=== PATIENT | male | born 1945 | race Caucasian/White ===

== ENCOUNTER 2021-05-27 13:55 | Inpatient (IN) | payer OTHER ==
[2021-05-27] MEDS ORDERED: ALBUTEROL INH PRN (16:55)
[2021-05-27] MEDS ORDERED: LORazepam 0.5 MG Tab PO PRN (16:55)
[2021-05-27] MEDS ORDERED: IPRATROPIUM INH PRN (16:55)
[2021-05-27] MEDS ORDERED: oxyCODONE 5 MG Tab PO PRN (16:55)
[2021-05-27] MEDS ORDERED: ACETAMINOPHEN 650 MG PO PRN (16:55)
[2021-05-27] MEDS ORDERED: Glycopyrrolate 1 MG Tab PO PRN (16:55)
[2021-05-27] MEDS ORDERED: DEXTROSE PO PRN (16:55)
[2021-05-27] MEDS ORDERED: ONDANSETRON 8 MG PO PRN (16:55)
[2021-05-27] MEDS: BIOTENE DRY MOUTH RINSE PO SCH (18:35)
[2021-05-27] MEDS: GLIPIZIDE 5 MG PO SCH (18:36)
[2021-05-27] MEDS: SODIUM BICARBONATE 650 MG PO SCH ×2 (18:36→21:05)
[2021-05-27] MEDS: METOPROLOL TARTRATE 25 MG PO SCH (18:39)
[2021-05-27] MEDS ORDERED: Non-Formulary Medication 1 Each (Folic Acid [Folic Acid] 0.4 MG Tablet) PO SCH (21:00)
[2021-05-27] MEDS: Cranberry Ext/C/L. Sporogenes Tab PO SCH (21:04)
[2021-05-27] MEDS: MICONAZOLE NITRATE TOP SCH (21:04)
[2021-05-27] MEDS: MELATONIN 3 MG PO SCH (21:05)
[2021-05-28] MEDS: BIOTENE DRY MOUTH RINSE PO SCH ×2 (05:58→17:48)
[2021-05-28] MEDS: METOPROLOL TARTRATE 25 MG PO SCH ×2 (06:03→17:47)
[2021-05-28] MEDS: OMEPRAZOLE 20 MG PO SCH (06:30)
[2021-05-28] MEDS: GLIPIZIDE 5 MG PO SCH ×2 (06:30→17:48)
[2021-05-28] MEDS: ASPIRIN 81 MG PO SCH (08:48)
[2021-05-28] MEDS: SODIUM BICARBONATE 650 MG PO SCH ×5 (08:48→20:00)
[2021-05-28] MEDS: DULOXETINE 30 MG PO SCH (08:49)
[2021-05-28] MEDS: Cranberry Ext/C/L. Sporogenes Tab PO SCH ×3 (08:50→20:00)
[2021-05-28] MEDS: LIDOCAINE TOP SCH (11:19)
[2021-05-28] MEDS: MICONAZOLE NITRATE TOP SCH ×3 (11:19→20:00)
[2021-05-28] MEDS: DIGOXIN 125 MCG PO SCH (17:46)
[2021-05-28] MEDS: MELATONIN 3 MG PO SCH ×2 (19:42→20:00)
[2021-05-29] MEDS: METOPROLOL TARTRATE 25 MG PO SCH ×2 (05:59→18:34)
[2021-05-29] MEDS: BIOTENE DRY MOUTH RINSE PO SCH ×2 (06:01→18:39)
[2021-05-29] MEDS: GLIPIZIDE 5 MG PO SCH ×2 (08:48→18:37)
[2021-05-29] MEDS: ASPIRIN 81 MG PO SCH (08:49)
[2021-05-29] MEDS: OMEPRAZOLE 20 MG PO SCH (08:49)
[2021-05-29] MEDS: Cranberry Ext/C/L. Sporogenes Tab PO SCH ×2 (08:50→20:13)
[2021-05-29] MEDS: DULOXETINE 30 MG PO SCH (08:50)
[2021-05-29] MEDS: SODIUM BICARBONATE 650 MG PO SCH ×4 (08:50→20:14)
[2021-05-29] MEDS: LIDOCAINE TOP SCH (08:51)
[2021-05-29] MEDS: MICONAZOLE NITRATE TOP SCH ×2 (08:53→20:13)
[2021-05-29] MEDS: DIGOXIN 125 MCG PO SCH (18:41)
[2021-05-29] MEDS: MELATONIN 3 MG PO SCH (20:13)
[2021-05-30] MEDS: BIOTENE DRY MOUTH RINSE PO SCH ×2 (07:29→17:03)
[2021-05-30] MEDS: GLIPIZIDE 5 MG PO SCH ×2 (07:31→17:05)
[2021-05-30] MEDS: Cranberry Ext/C/L. Sporogenes Tab PO SCH ×3 (07:32→20:23)
[2021-05-30] MEDS: OMEPRAZOLE 20 MG PO SCH (07:33)
[2021-05-30] MEDS: METOPROLOL TARTRATE 25 MG PO SCH ×2 (07:34→17:10)
[2021-05-30] MEDS: DULOXETINE 30 MG PO SCH ×2 (07:35→08:08)
[2021-05-30] MEDS: ASPIRIN 81 MG PO SCH ×2 (07:36→08:08)
[2021-05-30] MEDS: SODIUM BICARBONATE 650 MG PO SCH ×5 (07:36→20:23)
[2021-05-30] MEDS: MICONAZOLE NITRATE TOP SCH ×3 (07:40→20:23)
[2021-05-30] MEDS: LIDOCAINE TOP SCH (08:08)
[2021-05-30] MEDS: DIGOXIN 125 MCG PO SCH (17:10)
[2021-05-30] MEDS: MELATONIN 3 MG PO SCH (20:23)
[2021-05-31] MEDS: BIOTENE DRY MOUTH RINSE PO SCH ×2 (06:38→17:44)
[2021-05-31] MEDS: OMEPRAZOLE 20 MG PO SCH (06:38)
[2021-05-31] MEDS: GLIPIZIDE 5 MG PO SCH ×2 (06:38→17:45)
[2021-05-31] MEDS: METOPROLOL TARTRATE 25 MG PO SCH ×2 (06:39→18:06)
[2021-05-31] MEDS: Cranberry Ext/C/L. Sporogenes Tab PO SCH ×2 (09:59→19:59)
[2021-05-31] MEDS: DULOXETINE 30 MG PO SCH (10:03)
[2021-05-31] MEDS: ASPIRIN 81 MG PO SCH (10:03)
[2021-05-31] MEDS: SODIUM BICARBONATE 650 MG PO SCH ×4 (10:04→19:59)
[2021-05-31] MEDS: LIDOCAINE TOP SCH (10:07)
[2021-05-31] MEDS: MICONAZOLE NITRATE TOP SCH ×2 (10:09→20:00)
[2021-05-31] MEDS: DIGOXIN 125 MCG PO SCH (18:05)
[2021-05-31] MEDS: MELATONIN 3 MG PO SCH (19:59)
[2021-06-01] MEDS: OMEPRAZOLE 20 MG PO SCH ×2 (06:17→06:29)
[2021-06-01] MEDS: GLIPIZIDE 5 MG PO SCH ×2 (06:18→06:29)
[2021-06-01] MEDS: BIOTENE DRY MOUTH RINSE PO SCH (06:18)
[2021-06-01] MEDS: METOPROLOL TARTRATE 25 MG PO SCH (06:25)
[2021-06-01] MEDS: Cranberry Ext/C/L. Sporogenes Tab PO SCH (08:51)
[2021-06-01] MEDS: ASPIRIN 81 MG PO SCH (08:53)
[2021-06-01] MEDS: DULOXETINE 30 MG PO SCH (08:54)
[2021-06-01] MEDS: SODIUM BICARBONATE 650 MG PO SCH (08:55)
== END 2021-06-01 13:05 | disposition hospice, home (50) | DRG 951 ==
LOC: KA.MS 14:28
PROVIDERS: ADMIT Student in an Organized Health Care Education/Training Program; ATTEND Family Medicine
DX: Z75.5 Holiday relief care (principal); I13.0 Hypertensive heart and chronic kidney disease with heart failure and stage 1 through stage 4 chronic kidney disease, or unspecified chronic kidney disease; N18.4 Chronic kidney disease, stage 4 (severe); C67.9 Malignant neoplasm of bladder, unspecified; E78.5 Hyperlipidemia, unspecified; E11.22 Type 2 diabetes mellitus with diabetic chronic kidney disease; Z66 Do not resuscitate; J44.9 Chronic obstructive pulmonary disease, unspecified; D52.9 Folate deficiency anemia, unspecified; R29.6 Repeated falls; Z20.822 Contact with and (suspected) exposure to COVID-19; R63.4 Abnormal weight loss; G47.00 Insomnia, unspecified; M25.512 Pain in left shoulder; Z91.018 Allergy to other foods; Z79.82 Long term (current) use of aspirin; Z88.8 Allergy status to other drugs, medicaments and biological substances; Z79.899 Other long term (current) drug therapy; Z79.01 Long term (current) use of anticoagulants; Z95.2 Presence of prosthetic heart valve; Z95.0 Presence of cardiac pacemaker; Z85.46 Personal history of malignant neoplasm of prostate; Z87.440 Personal history of urinary (tract) infections; Z87.891 Personal history of nicotine dependence; Z68.25 Body mass index [BMI] 25.0-25.9, adult
CPT/HCPCS: A9270-GY; U0002

== ENCOUNTER 2022-05-25 13:53 | Emergency (ER) | payer OTHER ==
[2022-05-25] MEDS ORDERED: Sodium Chloride 0.9% 1,000 ML IV ONE (15:49)
== END 2022-05-25 16:20 ==
LOC: KA.ED 13:53
DX: D50.0 Iron deficiency anemia secondary to blood loss (chronic) (principal); R31.0 Gross hematuria; E11.9 Type 2 diabetes mellitus without complications; I10 Essential (primary) hypertension; Z91.018 Allergy to other foods; Z88.8 Allergy status to other drugs, medicaments and biological substances; Z79.82 Long term (current) use of aspirin; Z79.899 Other long term (current) drug therapy
CPT/HCPCS: 80053; 81001; 85025; 96360; 99284; 99285-25; J7030

== ENCOUNTER 2022-07-20 14:37 | Emergency (ER) | payer OTHER ==
[2022-07-20] MEDS: Acetaminophen/HYDROcodone 325-5 MG Tab PO ONE (15:35)
[2022-07-20] MEDS: cloNIDine 0.1 MG Tab PO ONE (15:35)
[2022-07-20 15:45] LABS: CHLORIDE,CL 104 mmol/L (98-107); SODIUM,NA 141 mmol/L (136-145)
[2022-07-20 15:49] LABS: ESTIMATED GFR 26 mL/min (>=60)
[2022-07-20] MEDS: cefTRIAXone 1 GM Vial IVPUSH ONE (17:05)
[2022-07-20] MEDS: Sodium Chloride 0.9% 1,000 ML IV ONE (17:10)
[2022-07-20] MEDS: Sodium Chloride 0.9% 1,000 ML IV SCH (18:10)
[2022-07-20] MEDS: Sodium Chloride 0.9% 1,000 ML ONE (19:06)
== END 2022-07-20 18:11 ==
LOC: KA.ED 14:37 → EDBD 14:37 → KA.ED 18:11
DX: T83.512A Infection and inflammatory reaction due to nephrostomy catheter, initial encounter (principal); N39.0 Urinary tract infection, site not specified; E11.9 Type 2 diabetes mellitus without complications; I10 Essential (primary) hypertension; Z79.82 Long term (current) use of aspirin; Z91.018 Allergy to other foods; Z88.8 Allergy status to other drugs, medicaments and biological substances
CPT/HCPCS: 36415; 80053; 81001; 83605; 85025; 86140; 87086; 87088; 87186; 93010; 96361; 96374; 99284; 99285-25; A9270-GY; J0696; J7030